=== PATIENT | male | born 1990 | race Caucasian/White ===

== ENCOUNTER 2016-09-08 10:11 | Emergency (ER) | payer BC ==
[2016-09-08 10:15] VITALS: BP 129/79; PULSE 89; TEMP 98.3; BMI 32.1
[2016-09-08] MEDS ORDERED: diazePAM 5 MG TABLET PO ONE (10:43)
[2016-09-08] MEDS ORDERED: KETOROLAC TROMETHAMINE 60 MG/2 ML VIAL ONE (10:44)
[2016-09-08] MEDS ORDERED: KETOROLAC TROMETHAMINE 60 MG/2 ML VIAL IM ONE (10:44)
[2016-09-08] MEDS ORDERED: diazePAM 5 MG TABLET ONE (10:45)
[2016-09-08 11:16] LABS: URINE APPEARANCE CLEAR; URINE BLOOD NEGATIVE (NEGATIVE); URINE COLOR DKYELLOW; URINE GLUCOSE (UA) NEGATIVE (NEGATIVE); URINE KETONE TRACE (NEGATIVE); URINE LEUK ESTERASE NEGATIVE (NEGATIVE); URINE NITRITE NEGATIVE (NEGATIVE); URINE UROBILINOGEN 2.0 E.U/dl E.U./dl (0.2-1.0)
[2016-09-08 11:23] LABS: URINE PROTEIN 1+ (NEGATIVE)
[2016-09-08 11:24] LABS: URINE MUCUS FEW; URINE RBC 2 /hpf (0-3); URINE WBC 4 /hpf (3-5)
--- NOTE | 2016-09-08 12:01 | PDOC ---
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 [employer] x 2 days ago; Severity: reports: severe Pain Location: reports: back Method of Injury: Yes: unknown (no trauma) Associated Symptoms (Fall): muscle spasms Past History - Past Medical History Allergies/Adverse Reactions: Allergies Allergy/AdvReac Type Severity Reaction Status Date / Time No Known Allergies Allergy Verified 09/08/16 10:15 Home Medications: Ambulatory Orders NK [No Known Home Medication] 09/08/16 Other medical history: DONE - Psycho/Social/Smoking Cessation Hx Anxiety: No Suicidal Ideation: No Smoking History: Never smoked Information on smoking cessation initiated: No Hx Alcohol Use: Yes (SOCIAL) Drug/Substance Use Hx: No Substance Use Type: None Review of Systems - Review of Systems Constitutional: No: Fever, Malaise HEENTM: No: Symptoms Reported Respiratory: No: Symptoms reported Cardiac (ROS): No: Symptoms Reported ABD/GI: No: Symptoms Reported, Diarrhea, Nausea, Rectal Bleeding, Vomiting, Abdominal cramping : No: Dysuria, Discharge, Incontinence, Lesions Musculoskeletal: Yes: Back Pain, Muscle Pain. No: Joint Pain, Neck Pain Integumentary: No: Symptoms Reported Neurological: No: Numbness, Paresthesia, Pre-Existing Deficit, Seizure, Tingling , Weakness *Physical Exam - Vital Signs Last Vital Signs Temp Pulse Resp BP Pulse Ox 98.3 F 89 20 129/79 99 09/08/16 10:12 09/08/16 10:12 09/08/16 10:12 09/08/16 10:12 09/08/16 10:12 - Physical Exam General Appearance: Yes: Appropriately Dressed. No: Apparent Distress HEENT: positive: TMs Normal, Pharynx Normal Neck: positive: Supple. negative: Tender, Rigid, Lymphadenopathy (R), Lymphadenopathy (L) Respiratory/Chest: positive: Lungs Clear, Accessory Muscle Use. negative: Rhonchi, Stridor, Wheezing Cardiovascular: negative: Regular Rhythm, Regular Rate Gastrointestinal/Abdominal: positive: Soft. negative: Normal Bowel Sounds, Tender, Organomegaly, Pulsatile Mass Musculoskeletal: positive: Muscle Spasm. negative: Decreased Range of Motion Extremity: negative: Normal Capillary Refill, Normal Inspection Neurologic: positive: Motor Strength 5/5. negative: Numbness, Sensory Deficit, Babinski Deep Tendon Reflexes: Ankle (L): 1+, Ankle (R): 1+, Knee (L): 2+, Knee (R): 2+ ED Treatment Course - ADDITIONAL ORDERS Additional order review: Laboratory Results 09/08/16 10:45 Urine Color Dkyellow Urine Appearance Clear Urine pH 5.0 Ur Specific [place] 1.040 H Urine Protein 1+ H Urine Glucose (UA) Negative Urine Ketones Trace H Urine Blood Negative Urine Nitrite Negative Urine Bilirubin 2.0 Urine Urobilinogen 2.0 e.u/dl Ur Leukocyte Esterase Negative Urine RBC 2 Urine WBC 4 Ur Epithelial Cells Rare Urine Mucus Few - Medications Given in the ED: ED Medications Discontinued Medications Generic Name Dose Route Start Last Admin Trade Name Freq PRN Reason Stop Dose Admin Diazepam 5 mg 09/08/16 10:43 09/08/16 10:51 Valium - PO 09/08/16 10:44 5 mg ONCE ONE Administration Ketorolac Tromethamine 60 mg 09/08/16 10:44 09/08/16 10:51 Toradol Injection - IM 09/08/16 10:45 60 mg ONCE ONE Administration Medical Decision Making - Medical Decision Making 09/08/16 11:59 protein in urine; will have follow with local MD; feeling much better post toradol *DC/Admit/Observation/Transfer Diagnosis at time of Disposition: Protein in urine Qualifiers: Proteinuria type: unspecified Qualified Code(s): R80.9 - Proteinuria, unspecified Low back pain Qualifiers: Chronicity: acute Back pain laterality: unspecified Sciatica presence: without sciatica Qualified Code(s): M54.5 - Low back pain - Discharge Dispostion Disposition: HOME Condition at time of disposition: Stable Admit: No - Patient Instructions Additional Instructions: please see local MD for protein in urine; see Dr aguirre if no better in 4-5 days - Post Discharge Activity Work/School Note: Back to Work
== END 2016-09-08 12:07 | disposition home or self-care (01) ==
LOC: JERFT 10:11
PROC: 3E0233Z Introduction of Anti-inflammatory into Muscle, Percutaneous Approach (ICD-10-PCS; principal; 2016-09-08)
DX: M54.5 Low back pain (principal); R80.9 Proteinuria, unspecified; X50.1XXA Overexertion from prolonged static or awkward postures, initial encounter; X50.9XXA Other and unspecified overexertion or strenuous movements or postures, initial encounter; Y93.K9 Activity, other involving animal care; Y92.89 Other specified places as the place of occurrence of the external cause; Y99.8 Other external cause status
CPT/HCPCS: 81003; 81015; 99281-25